=== PATIENT | female | born 1995 | race African-American/Black ===

== ENCOUNTER 2019-08-05 21:16 | Emergency (ER) | payer BC, OTHER ==
[2019-08-05] MEDS ORDERED: RINGERS SOLUTION,LACTATED 1,000 ML IV ONE (22:00)
[2019-08-05] MEDS ORDERED: ONDANSETRON HCL INJ/PF 4 MG/2 ML SDV IV ONE ×2 (22:01→23:55)
--- NOTE | 2019-08-05 22:02 | ER Document Report ---
ED Medical Screen (RME) - General Chief Complaint: Pelvic Pain Stated Complaint: PELVIC PAIN Time Seen by Provider: 08/05/19 21:57 Primary Care Provider: PRAVEEN GARY MD [Primary Care Provider] - Follow up as needed Mode of Arrival: Ambulatory Information source: Patient Notes: HPI; 23-year-old female no previous medical problems presents emergency room complaining of lower pelvic pain and swelling for the past week. Complaining of cramping also nausea, vomiting, no fevers, no urinary symptoms. No medications for symptoms. 3 menstrual cycles in the past 6 weeks. PE: Alert and oriented x3. Mild distress noted. Lungs:: Clear to auscultation without rales rhonchi wheezes. Heart: Regular rate rhythm without murmurs rubs or gallops. Abdomen soft, nontender, positive bowel sounds x4. Unable to do full exam in triage. I have greeted and performed a rapid initial assessment of this patient. A comprehensive ED assessment and evaluation of the patient, analysis of test results and completion of the medical decision making process will be conducted by additional ED providers. I have specifically instructed the patient or family members with the patient to immediately return to any nursing staff should anything change in the patient's condition or with their chief complaint. TRAVEL OUTSIDE OF THE [place] IN LAST 30 DAYS: No - Related Data Allergies/Adverse Reactions: No Known Allergies Allergy (Verified 12/16/16 12:10) Past Medical History Neurological Medical History: Reports: Hx Migraine Renal/ Medical History: Denies: Hx Peritoneal Dialysis Musculoskeltal Medical History: Reports Hx Musculoskeletal Trauma - Fractured right elbow Traumatic Medical History: Reports: Hx Fractures - Right elbow Past Surgical History: Reports: Hx Orthopedic Surgery - fractured right elbow - Immunizations Immunizations up to date: Yes Hx Diphtheria, Pertussis, Tetanus Vaccination: Yes Physical Exam - Vital signs Vitals: Temp Pulse Resp BP Pulse Ox 98.9 F 82 16 129/79 H 98 08/05/19 21:29 08/05/19 21:29 08/05/19 21:29 08/05/19 21:29 08/05/19 21:29 Course - Vital Signs Vital signs: Temp Pulse Resp BP Pulse Ox 98.9 F 82 16 129/79 H 98 08/05/19 21:29 08/05/19 21:29 08/05/19 21:29 08/05/19 21:29 08/05/19 21:29 Doctor's Discharge - Discharge Referrals: PRAVEEN GARY MD [Primary Care Provider] - Follow up as needed
[2019-08-05 22:32] LABS: ABSOLUTE BASOPHILS # (AUTO) 0.1 10^3/uL (0.0-0.2); ABSOLUTE EOSINOPHILS # (AUTO) 0.1 10^3/uL (0.0-0.6); ABSOLUTE MONOCYTES (AUTO) 0.4 10^3/uL (0.1-1.4); ABSOLUTE NEUT (AUTO) 2.4 10^3/uL (1.7-8.2); BASOPHILS % (AUTO) 1.1 % (0-2); EOSINOPHILS % (AUTO) 2.1 % (0-6); HEMATOCRIT 39.6 % (36.0-47.0); HEMOGLOBIN 13.3 g/dL (12.0-15.5); LYMPHOCYTES % (AUTO) 40.4 % (13-45); MEAN CORPUSCULAR HEMOGLOBIN 28.6 pg (27.0-33.4); MEAN CORPUSCULAR HGB CONC 33.7 g/dL (32.0-36.0); MEAN CORPUSCULAR VOLUME 85 fl (80-97); MONOCYTES % (AUTO) 7.9 % (3-13); PLATELET COUNT 286 10^3/uL (150-450); RED BLOOD COUNT 4.67 10^6/uL (3.72-5.28); RED CELL DISTRIBUTION WIDTH 13.1 % (11.5-14.0); SEGMENTED NEUTROPHILS % (AUTO) 48.5 % (42-78); TOTAL CELLS COUNTED % (AUTO) 100 %; WHITE BLOOD COUNT 4.9 10^3/uL (4.0-10.5)
[2019-08-05 22:41] LABS: APPEARANCE,URINE SLIGHTLY-CLOUDY; BILIRUBIN,URINE NEGATIVE (NEGATIVE); COLOR,URINE YELLOW; GLUCOSE, URINE NEGATIVE (NEGATIVE); KETONES,URINE NEGATIVE (NEGATIVE); LEUKOCYTE ESTERASE,URINE NEGATIVE (NEGATIVE); NITRITE,URINE NEGATIVE (NEGATIVE); PROTEIN,URINE 30 mg/dL (NEGATIVE)
[2019-08-05 22:52] LABS: ALBUMIN 4.9 g/dL (3.5-5.0); ALKALINE PHOSPHATASE 62 U/L (38-126); ANION GAP 7 (5-19); ASPARTATE AMINO TRANSFERASE 26 U/L (14-36); BILIRUBIN,TOTAL 0.3 mg/dL (0.2-1.3); BLOOD UREA NITROGEN 9 mg/dL (7-20); CALCIUM 9.7 mg/dL (8.4-10.2); CARBON DIOXIDE 24 mmol/L (22-30); CHLORIDE 107 mmol/L (98-107); GLUCOSE 98 mg/dL (75-110); POTASSIUM 3.7 mmol/L (3.6-5.0); TOTAL PROTEIN 8.2 g/dL (6.3-8.2)
[2019-08-05] MEDS ORDERED: KETOROLAC TROMETHAMINE INJ/PF 30 MG/1 ML SDV IV ONE (23:55)
--- NOTE | 2019-08-06 00:03 | ER Document Report ---
ED General - General Chief Complaint: Pelvic Pain Stated Complaint: PELVIC PAIN Time Seen by Provider: 08/05/19 21:57 Primary Care Provider: PRAVEEN GARY MD [Primary Care Provider] - Follow up as needed Mode of Arrival: Ambulatory Notes: 23-year-old female presents emergency department complaining that her "ovaries feel like they are on fire" patient states is been going on for the past 1-1/2 weeks. It is also associated with nausea as well as vomiting of foam for the past 2 weeks. Patient states that she stopped her OCPs 4 days ago in hopes that it would get rid of the symptoms however the symptoms have worsened today. Patient states she had similar symptoms 2 years ago that were attributed to her Nexplanon. Patient has a history of ovarian cyst, does not have a history of ovarian torsion. Has a follow-up appointment with her DATA REDUCTION TECHNICIAN on the . Restarted her menstrual cycle today. TRAVEL OUTSIDE OF THE [place] IN LAST 30 DAYS: No - Related Data Allergies/Adverse Reactions: No Known Allergies Allergy (Verified 12/16/16 12:10) Past Medical History - General Information source: Patient - Social History Smoking Status: Current Every Day Smoker Frequency of alcohol use: None Drug Abuse: None Family History: Reviewed & Not Pertinent Neurological Medical History: Reports: Hx Migraine Renal/ Medical History: Denies: Hx Peritoneal Dialysis Musculoskeletal Medical History: Reports Hx Musculoskeletal Trauma - Fractured right elbow Traumatic Medical History: Reports: Hx Fractures - Right elbow Past Surgical History: Reports: Hx Orthopedic Surgery - fractured right elbow - Immunizations Immunizations up to date: Yes Hx Diphtheria, Pertussis, Tetanus Vaccination: Yes Review of Systems - Review of Systems Constitutional: No symptoms reported Gastrointestinal: See HPI, Abdominal pain, Nausea, Vomiting. denies: Diarrhea Genitourinary: No symptoms reported Female Genitourinary: See HPI -: Yes All other systems reviewed and negative Physical Exam - Vital signs Vitals: Temp Pulse Resp BP Pulse Ox 98.9 F 82 16 129/79 H 98 08/05/19 21:29 08/05/19 21:29 08/05/19 21:29 08/05/19 21:29 08/05/19 21:29 Interpretation: Normal - Notes Notes: GENERAL: Alert, interacts well. No acute distress. HEAD: Normocephalic, atraumatic EYES: Pupils equal, round and reactive to light, extraocular movements intact. ENT: Oral mucosa moist, tongue midline. NECK: Full range of motion, supple, trachea midline. LUNGS: Clear to auscultation bilaterally, no wheezes, rales or rhonchi, no respiratory distress. HEART: Regular rate and rhythm, no murmurs, gallops, rubs. ABDOMEN: Soft, minimal lower abdominal tenderness to palpation, no guarding, no rigidity, no rebounding, nondistended, bowel sounds present in all 4 quadrants. EXTREMITIES: Moves all 4 extremities spontaneously, no edema. No cyanosis. NEUROLOGICAL: Alert and oriented x3, normal speech. PSYCH: Normal mood, normal affect. SKIN: Warm, Dry, normal turgor. Course - Re-evaluation Re-evalutation: 08/06/19 01:31 CBC unremarkable, CMP unremarkable, test negative, urinalysis shows moderate blood but there is only 5 RBCs, there is sick squamous epithelial cells and the patient is on her menstrual cycle, suspect contamination. Patient does have a history of ovarian cyst so ovarian ultrasound was performed transvaginally to look for torsion, no evidence of torsion or cysts. Patient was given Toradol through the IV and Zofran through the IV, states that her pain is better her nausea is resolved and she is ready to go home. Agrees with trying ketorolac nasal spray as well as Zofran ODT. Will follow-up with DATA REDUCTION TECHNICIAN as an outpatient. Agrees with not starting narcotics at this time. Discharged home. 08/06/19 01:33 Transvaginal US 08/05/19 23:55 IMPRESSION: Unremarkable pelvic ultrasound copyright 2011 [employer]- All Rights Reserved - Vital Signs Vital signs: Temp Pulse Resp BP Pulse Ox 98.9 F 82 16 129/79 H 98 08/05/19 21:29 08/05/19 21:29 08/05/19 21:29 08/05/19 21:29 08/05/19 21:29 - Laboratory Result Diagrams: 08/05/19 22:19 08/05/19 22:19 Laboratory results interpreted by me: 08/05/19 22:19 Urine Protein 30 H Urine Blood MODERATE H Urine Urobilinogen 2.0 H Urine Ascorbic Acid 20 H Discharge - Discharge Clinical Impression: Abdominal pain, acute, bilateral lower quadrant Nausea and vomiting Qualifiers: Vomiting type: unspecified Vomiting Intractability: non-intractable Qualified Code(s): R11.2 - Nausea with vomiting, unspecified Condition: Stable Disposition: HOME, SELF-CARE Additional Instructions: I do not know exactly what is causing her abdominal pain today. There is no evidence of cysts on your ovary and there is no evidence of ovarian torsion. I have prescribed Sprix nasal spray, this is a nasal version of the Toradol shot you got here. I have also written you a prescription for Zofran that dissolves under the tongue. Please follow-up with your DATA REDUCTION TECHNICIAN as scheduled later this month, please return to the emergency department for fever, uncontrollable vomiting, severe abdominal pain or any new or concerning symptoms. Prescriptions: Ondansetron [Zofran Odt 4 mg Tablet] 4 mg PO Q4HP PRN #20 tab.rapdis PRN Reason: Ketorolac Tromethamine [Sprix] 1 each NS Q8HP PRN #5 spray PRN Reason: Referrals: PRAVEEN GARY MD [Primary Care Provider] - Follow up as needed STEPHAN RIVERA MD [ACTIVE STAFF] - Follow up as needed
--- NOTE | 2019-08-06 00:39 | RADIOLOGY REPORT (SQ) ---
EXAM DESCRIPTION: US PELVIS TRANSVAGINAL COMPLETED DATE/TME: 08/05/2019 23:55 CLINICAL HISTORY: 23 years, Female, low abd pain, h/o cysts, r/o torsion COMPARISON: None. TECHNIQUE: Emergent pelvic ultrasound LIMITATIONS: None. FINDINGS: Uterus measures 7.8 x 4.8 x 3.4 cm. Myometrial homogenous. Endometrium measures 5.1 mm. Trace of fluid in the endometrial canal. Right ovary measures 3.4 x 2.0 x 1.8 cm. Left ovary measures 3.2 x 1.8 x 2.0 cm. Arterial flow to each ovary. No solid adnexal mass. No free fluid. Probable follicular change noted. IMPRESSION: Unremarkable pelvic ultrasound copyright 2010 [employer]- All Rights Reserved
[2019-08-06] MEDS ORDERED: ONDANSETRON ODT 4 MG TAB (6 TAB/ER DISP) PO PRN (01:34)
[2019-08-06 01:50] VITALS: BP 113/87
== END 2019-08-06 01:51 | disposition home or self-care (01) ==
LOC: ER 21:16
DX: R10.31 Right lower quadrant pain (principal); R10.32 Left lower quadrant pain; R11.2 Nausea with vomiting, unspecified; R10.2 Pelvic and perineal pain; R10.9 Unspecified abdominal pain; F17.200 Nicotine dependence, unspecified, uncomplicated
CPT/HCPCS: 99284; 96361; 96374; 96375; 36415; 84703; 85025; 80053; 81001; 76830; 93976; J1885; J2405; J7120